=== PATIENT | female | born 1960 | race Caucasian/White ===

== ENCOUNTER → 2016-04-08 | Outpatient (CLI) | payer OTHER ==
[~2016-04-08] MED LIST: ATOR10TA88 PO; CPR500 PO; DILT180C96 PO; MESA10002 PR; MTR500 PO; MULT-506 PO; OMEG1200 PO; SPIR25TA PO
[2016-04-08 16:47] LABS: BASO % 0.2 %; BASO ABS # 0.02 K/uL (0-0.2); COMPLETE YES; EOS % 0.8 %; IG% 0.2 %; LYMPH % 22.5 %; LYMPH ABS # 1.95 K/uL (1.2-3.4); MEAN CELL VOLUME 92.8 fL (80-100); MEAN CORPUSCULAR HEMOGLOBIN 32.3 pg (25-34); MEAN CORPUSCULAR HGB CONC 34.8 g/dl (32-36); MEAN PLATELET VOLUME 10.8 fL (7.4-10.4); MONO % 8.1 %; NEUT % 68.2 %; PLATELET COUNT 303 K/uL (130-400); RED BLOOD COUNT 4.31 M/uL (4.2-5.4); WHITE BLOOD COUNT 8.65 K/uL (4.8-10.8)
[2016-04-08 17:03] LABS: ALT/SGPT 21 U/L (12-78); BLOOD UREA NITROGEN 13 mg/dl (7-18); BUN/CREATININE RATIO 15.5 (10-20); C-REACTIVE PROTEIN < 0.29 mg/dl (0-0.29); CALCIUM 10.1 mg/dl (8.5-10.1); CARBON DIOXIDE 29 mmol/L (21-32); CHLORIDE 102 mmol/L (98-107); CREATININE 0.82 mg/dl (0.60-1.20); GLUCOSE 99 mg/dl (70-99); POTASSIUM 4.3 mmol/L (3.5-5.1); SODIUM 139 mmol/L (136-145)
[2016-04-08 17:06] LABS: ALB/GLOB RATIO 1.2 (0.9-2); ALKALINE PHOSPHATASE 82 U/L (45-117); AST/SGOT 17 U/L (15-37)
== END | disposition home or self-care (01) ==
LOC: C.LAB1850 15:29
PROVIDERS: ATTEND Internal Medicine
DX: K51.90 Ulcerative colitis, unspecified, without complications (principal)

== ENCOUNTER → 2016-07-15 | Outpatient (CLI) | payer OTHER ==
[~2016-07-15] MED LIST changes: +ATOR10TA82 PO; -ATOR10TA88 PO; +DILT180C58 PO; -DILT180C96 PO
[2016-07-15 11:16] LABS: ALT/SGPT 24 U/L (12-78); BLOOD UREA NITROGEN 11 mg/dl (7-18); BUN/CREATININE RATIO 13.6 (10-20); CARBON DIOXIDE 30 mmol/L (21-32); CHLORIDE 103 mmol/L (98-107); CHOLESTEROL 170 mg/dl (0-200); CREATININE 0.81 mg/dl (0.60-1.20); GLUCOSE 101 mg/dl (70-99); POTASSIUM 4.4 mmol/L (3.5-5.1); SODIUM 138 mmol/L (136-145)
[2016-07-15 11:19] LABS: ALB/GLOB RATIO 1.2 (0.9-2); ALKALINE PHOSPHATASE 87 U/L (45-117); AST/SGOT 16 U/L (15-37); CALCIUM 10.2 mg/dl (8.5-10.1); HDL CHOLESTEROL 86 mg/dl; LDL CHOLESTEROL CALCULATED 70 mg/dl; TRIGLYCERIDES 71 mg/dl (0-150); VERY LOW DENSITY LIPOPROT CALC 14 mg/dl
== END | disposition home or self-care (01) ==
LOC: C.LABSPEC 10:55
PROVIDERS: ATTEND Family Medicine
DX: E78.2 Mixed hyperlipidemia (principal)

== ENCOUNTER → 2016-12-15 | Outpatient (CLI) | payer OTHER ==
[~2016-12-15] MED LIST changes: -ATOR10TA82 PO; +ATOR10TA88 PO; -DILT180C58 PO; +DILT180C96 PO
== END | disposition home or self-care (01) ==
LOC: C.PAPS 09:49
PROVIDERS: ATTEND Obstetrics & Gynecology
DX: Z12.4 Encounter for screening for malignant neoplasm of cervix (principal); N95.9 Unspecified menopausal and perimenopausal disorder

== ENCOUNTER → 2017-01-05 | Outpatient (CLI) | payer OTHER ==
[2017-01-05 11:39] LABS: ALB/GLOB RATIO 1.3 (0.9-2); ALT/SGPT 19 U/L (12-78); AST/SGOT 12 U/L (15-37); BLOOD UREA NITROGEN 11 mg/dl (7-18); BUN/CREATININE RATIO 11.9 (10-20); CALCIUM 10.1 mg/dl (8.5-10.1); CARBON DIOXIDE 26 mmol/L (21-32); CHLORIDE 103 mmol/L (98-107); CHOLESTEROL 172 mg/dl (0-200); GLUCOSE 96 mg/dl (70-99); POTASSIUM 4.4 mmol/L (3.5-5.1); SODIUM 138 mmol/L (136-145); TRIGLYCERIDES 69 mg/dl (0-150); VERY LOW DENSITY LIPOPROT CALC 14 mg/dl
[2017-01-05 11:40] LABS: ALKALINE PHOSPHATASE 96 U/L (45-117); HDL CHOLESTEROL 86 mg/dl; LDL CHOLESTEROL CALCULATED 72 mg/dl
== END | disposition home or self-care (01) ==
LOC: C.LABSPEC 10:59
PROVIDERS: ATTEND Family Medicine
DX: E78.2 Mixed hyperlipidemia (principal)

== ENCOUNTER → 2017-02-03 | Outpatient (CLI) | payer OTHER ==
[~2017-02-03] MED LIST changes: +ATOR10TA82 PO; -ATOR10TA88 PO; +DILT180C58 PO; -DILT180C96 PO
--- NOTE | 2017-02-04 07:44 | MAMMOGRAPHY REPORT ---
BILATERAL DIGITAL SCREENING MAMMOGRAM TOMOSYNTHESIS WITH CAD: 02/03/2017 CLINICAL HISTORY: Routine screening. Patient has no complaints. TECHNIQUE: Breast tomosynthesis in addition to standard 2D mammography was performed. Current study was also evaluated with a Computer Aided Detection (CAD) system. COMPARISON: Comparison is made to exams dated: 01/31/2016 mammogram, 11/30/2013 mammogram, 09/15/2012 mammogram, 10/08/2010 mammogram, 03/20/2009 mammogram - [facility], and 03/07/2008. BREAST COMPOSITION: There are scattered areas of fibroglandular density in both breasts. FINDINGS: The parenchymal pattern is unchanged. There are stable benign-appearing calcifications in the right breast. No developing mass, architectural distortion or cluster of suspicious microcalcif ications is seen in either breast. IMPRESSION: ACR BI-RADS CATEGORY 2: BENIGN There is no mammographic evidence of malignancy. A 1 year screening mammogram is recommended. The pa tient will receive written notification of the results. Approximately 10% of breast cancers are not detected with mammography. A negative mammographic report should not delay biopsy if a clinically suggestive mass is present. Pam Jamison M.D. ay/:02/03/2017 20:26:01 Pressure Tester Operator: Angelic GILMORE)(M), [facility] letter sent: Normal 1/2 BI-RADS Code: ACR BI-RADS Category 2: Benign
== END | disposition home or self-care (01) ==
LOC: C.MAMM 10:02
PROVIDERS: ATTEND Obstetrics & Gynecology
DX: Z12.31 Encounter for screening mammogram for malignant neoplasm of breast (principal)

== ENCOUNTER 2017-06-16 12:04 | Emergency (ER) | payer OTHER ==
[~2017-06-16] VITALS: Ht 162.6 cm; Wt 57.1 kg
[~2017-06-16 12:04] MED LIST changes: -DILT180C58 PO; +DILT180C96 PO
[2017-06-16 12:07] VITALS: Ht 162.6 cm; Wt 57.1 kg
[2017-06-16 13:34] LABS: ALBUMIN 3.2 gm/dl (3.4-5.0); CALCIUM 9.6 mg/dl (8.5-10.1); CREATININE 0.84 mg/dl (0.60-1.20); POTASSIUM 3.4 mmol/L (3.5-5.1)
[2017-06-16 13:37] LABS: BASO % 0.2 %; BASO ABS # 0.03 K/uL (0-0.2); EOS % 0.4 %; EOS ABS # 0.06 K/uL (0-0.5); HEMOGLOBIN 12.4 g/dL (12.0-16.0); IG# 0.04 K/uL (0.00-0.02); LYMPH % 9.7 %; LYMPH ABS # 1.41 K/uL (1.2-3.4); MEAN CELL VOLUME 91.1 fL (80-100); MEAN CORPUSCULAR HEMOGLOBIN 31.4 pg (25-34); MEAN CORPUSCULAR HGB CONC 34.4 g/dl (32-36); MEAN PLATELET VOLUME 9.1 fL (7.4-10.4); MONO % 7.9 %; MONO ABS # 1.15 K/uL (0.11-0.59); NEUT % 81.5 %; NEUT ABS # 11.84 K/uL (1.4-6.5); PLATELET COUNT 440 K/uL (130-400); RED CELL DISTRIBUTION WIDTH CV 12.1 % (11.5-14.5); RED CELL DISTRIBUTION WIDTH SD 40.6 fL (36.4-46.3); WHITE BLOOD COUNT 14.53 K/uL (4.8-10.8)
--- NOTE | 2017-06-16 13:38 | EMERGENCY ROOM VISIT NOTE ---
History Report prepared by Annabelle: Isaiah Short Under the Supervision of: Dr. Galindo Vernon M.D. First contact with patient: 12:33 Chief Complaint: EDEMA TO EXTREMITY Stated Complaint: SWELLING IN ANKLES,SORES ON LEGS History of Present Illness The patient is a 56 year old female who presents to the Emergency Room with complaints of worsening lower extremity sores beginning 20 days ago. She rates her discomfort as a 6/10 in severity. The patient states that she developed a light pink sore on her left knee on May 28 and another on her right calf a week later. The patient states that the area has been painful and swollen. She reports that her ankles haven also been edematous bilaterally. The patient states that her symptoms have been accompanied by joint aches, neck pain, and myalgia. She reports that she went to see her PCP, Dr. Russo, last week who was unsure what was causing her symptoms. The patient states that she was sent home with a prescription of Augmentin. She reports that she has been taking her antibiotics for five days, but denies any relief of symptoms. The patient states that her symptoms have been worsening instead and her sores have turned from a light pink to a red color. She denies fevers, chills, nausea, lightheaded , dizziness, urinary symptoms, diarrhea. Source of History: patient Onset: May 28 Position: leg (right), knee (left) Symptom Intensity: 6/10 Quality: other (red, swollen, painful) Timing: worsening Modifying Factors (Relieving): other (antibiotics) Associated Symptoms: + neck pain, No fevers, No chills, No nausea, No diarrhea, No urinary symptoms Note: Associated symptoms: lower extremity edema, myalgia, joint aches, Review of Systems See HPI for pertinent positives & negatives. A total of 10 systems reviewed and were otherwise negative. Past Medical & Surgical Surgical Problems: (1) H/O arthroscopic knee surgery Family History Patient reports no known family medical history. Social History Smoking Status: Never Smoker Alcohol Use: none Drug Use: none Marital Status: Housing Status: lives with family Occupation Status: employed Current/Historical Medications Scheduled Atorvastatin (Lipitor), 10 MG PO DAILY Ciprofloxacin (Ciprofloxacin HCl), 500 MG PO BID Diltiazem Hcl Coated Beads (Diltiazem Cd), 180 MG PO HS Doxycycline Hyclate (Vibramycin), 100 MG PO BID Mesalamine (Apriso), 4 CAP PO DAILY [place]-3 Fatty Acids (Fish Oil), 1 CAP PO DAILY Spironolactone (Aldactone), 25 MG PO BID Allergies Coded Allergies: No Known Allergies (Unverified , 06/16/17) Physical Exam Vital Signs Date Time Temp Pulse Resp B/P (MAP) Pulse Ox O2 Delivery O2 Flow Rate FiO2 06/16/17 18:15 37.1 77 18 136/72 96 06/16/17 16:30 80 16 134/70 98 Room Air 06/16/17 14:34 81 18 133/69 98 Room Air 06/16/17 12:07 36.8 97 18 154/75 97 Room Air Physical Exam GENERAL: Patient is in no acute distress. HEENT: No acute trauma, normocephalic atraumatic, mucous membranes moist, no nasal congestion, no scleral icterus. NECK: No stridor, no adenopathy, no meningismus, trachea is midline. LUNGS: Clear to auscultation bilaterally, no wheeze, no rhonchi, breath sounds equal. HEART: Without murmurs gallops or rubs, regular rate and rhythm. ABDOMEN: Soft, nontender, bowel sounds positive, no hernias, no peritonitis. EXTREMITIES: No cyanosis, mild bilateral pedal edema, full range of motion of all the joints without pain or difficulty, no signs for acute trauma. NEUROLOGIC: Oriented x 3, no acute motor or sensory deficits, no focal weakness. SKIN: No jaundice. There is a 4 cm erythematous, slightly raised lesion along the medial left knee. Area is tender. No drainage. There is a 6-7 cm similar appearing lesion to the right lateral leg. It is erythematous, slightly warm, slightly raised, and tender to touch. It has a pale central area. No drainage. Medical Decision & Procedures ER Provider Diagnostic Interpretation: Radiology results as stated below per my review and radiologist interpretation: ULTRASOUND BILATERAL LOWER EXTREMITY VENOUS CLINICAL HISTORY: Lower extremity edema. COMPARISON STUDY: No priors. TECHNIQUE: Real-time, grayscale, and color Doppler sonography of the deep veins of the right and left lower extremity was performed from the inguinal crease to the calf. Compression and augmentation were utilized. FINDINGS: There is no sonographic evidence of deep venous thrombosis identified in the right or left lower extremity. The common femoral, superficial femoral, and popliteal veins are patent and normally compressible bilaterally. The greater saphenous vein and the profunda femoris vein at the junction with the common femoral vein are clear in both legs. The visualized calf veins are patent bilaterally. IMPRESSION: There is no sonographic evidence of deep venous thrombosis identified in the right or left lower extremity. Electronically signed by: Galindo Smith M.D. 06/16/2017 2:43 PM Dictated Date/Time: 06/16/2017 2:43 PM EXTREMITY NONVASCULAR COMPLETE CLINICAL HISTORY: 56 years-old Female presenting with lesion on right leg--poss abscess. TECHNIQUE: Real-time grayscale Doppler ultrasound imaging of the anteromedial left knee was performed for a focused evaluation at the site of clinical concern. Color Doppler ultrasound imaging was also performed. COMPARISON: None. FINDINGS: Extensive subcutaneous edema and skin thickening along the anteromedial left knee at the site of clinical concern. No focal fluid collection. No significant hyperemia on color Doppler. IMPRESSION: 1. Nonspecific subcutaneous edema. This could indicate cellulitis in the proper clinical setting. No evidence of abscess. Electronically signed by: Kenny Swift M.D. 06/16/2017 2:47 PM Dictated Date/Time: 06/16/2017 2:44 PM CHEST ONE VIEW PORTABLE CLINICAL HISTORY: possible hilar adenopathy adenopathy COMPARISON STUDY: 01/18/2014 FINDINGS: The bones soft tissues and hemidiaphragms are normal. The cardiomediastinal silhouette is normal. The lungs are clear. The pulmonary vasculature is normal. IMPRESSION: Negative chest. The above report was generated using voice recognition software. It may contain grammatical, syntax or spelling errors. Electronically signed by: Tom Mckenzie M.D. 06/16/2017 4:14 PM Dictated Date/Time: 06/16/2017 4:14 PM Laboratory Results 06/16/17 13:00 Red Blood Count 3.95, Mean Corpuscular Volume 91.1, Mean Corpuscular Hemoglobin 31.4, Mean Corpuscular Hemoglobin Concent 34.4, Mean Platelet Volume 9.1, Neutrophils (%) (Auto) 81.5, Lymphocytes (%) (Auto) 9.7, Monocytes (%) (Auto) 7.9, Eosinophils (%) (Auto) 0.4, Basophils (%) (Auto) 0.2, Neutrophils # (Auto) 11.84, Lymphocytes # (Auto) 1.41, Monocytes # (Auto) 1.15, Eosinophils # (Auto) 0.06, Basophils # (Auto) 0.03 06/16/17 13:00 Test 06/16/17 13:00 White Blood Count 14.53 K/uL (4.8-10.8) Red Blood Count 3.95 M/uL (4.2-5.4) Hemoglobin 12.4 g/dL (12.0-16.0) Hematocrit 36.0 % (37-47) Mean Corpuscular Volume 91.1 fL (80-100) Mean Corpuscular Hemoglobin 31.4 pg (25-34) Mean Corpuscular Hemoglobin Concent 34.4 g/dl (32-36) Platelet Count 440 K/uL (130-400) Mean Platelet Volume 9.1 fL (7.4-10.4) Neutrophils (%) (Auto) 81.5 % Lymphocytes (%) (Auto) 9.7 % Monocytes (%) (Auto) 7.9 % Eosinophils (%) (Auto) 0.4 % Basophils (%) (Auto) 0.2 % Neutrophils # (Auto) 11.84 K/uL (1.4-6.5) Lymphocytes # (Auto) 1.41 K/uL (1.2-3.4) Monocytes # (Auto) 1.15 K/uL (0.11-0.59) Eosinophils # (Auto) 0.06 K/uL (0-0.5) Basophils # (Auto) 0.03 K/uL (0-0.2) RDW Standard Deviation 40.6 fL (36.4-46.3) RDW Coefficient of Variation 12.1 % (11.5-14.5) Immature Granulocyte % (Auto) 0.3 % Immature Granulocyte # (Auto) 0.04 K/uL (0.00-0.02) Erythrocyte Sedimentation Rate 88 mm/hr (0-21) Urine Color YELLOW Urine Appearance CLEAR (CLEAR) Urine pH 6.5 (4.5-7.5) Urine Specific [place] 1.006 (1.000-1.030) Urine Protein NEG (NEG) Urine Glucose (UA) NEG (NEG) Urine Ketones NEG (NEG) Urine Occult Blood NEG (NEG) Urine Nitrite NEG (NEG) Urine Bilirubin NEG (NEG) Urine Urobilinogen NEG (NEG) Urine Leukocyte Esterase NEG (NEG) Anion Gap 8.0 mmol/L (3-11) Est Creatinine Clear Calc Drug Dose 63.1 ml/min Estimated GFR () 88.8 Estimated GFR (Non- 76.6 BUN/Creatinine Ratio 14.7 (10-20) Calcium Level 9.6 mg/dl (8.5-10.1) Total Bilirubin 0.5 mg/dl (0.2-1) Aspartate Amino Transf (AST/SGOT) 11 U/L (15-37) Alanine Aminotransferase (ALT/SGPT) 13 U/L (12-78) Alkaline Phosphatase 86 U/L (45-117) C-Reactive Protein 3.88 mg/dl (0-0.29) Total Protein 8.3 gm/dl (6.4-8.2) Albumin 3.2 gm/dl (3.4-5.0) Globulin 5.1 gm/dl (2.5-4.0) Albumin/Globulin Ratio 0.6 (0.9-2) Thyroid Stimulating Hormone (TSH) 1.880 uIu/ml (0.300-4.500) Lyme Disease IgG Antibody NEG (NEG) Lyme Disease IgM Antibody NEG (NEG) Laboratory results reviewed by me. Medications Administered Medications (Trade) Dose Ordered Sig/Jamal Route Start Time Stop Time Status Last Admin Dose Admin Vancomycin HCl (Vancomycin 1gm Ed/Asu Omnicell) 1 gm NOW STAT IV 06/16/17 15:23 06/16/17 15:26 DC 06/16/17 15:52 1 GM Doxycycline Hyclate (Vibramycin Cap) 100 mg NOW STAT PO 06/16/17 15:23 06/16/17 15:26 DC 06/16/17 16:30 100 MG ED Course 1234: The patient was evaluated in room C08. A complete history and physical exam was performed. 1504: I discussed the patients case with Dr. Mckee, [facility] Infectious Disease. She suggests switching antibiotics to cover MRSA. 1515: I reevaluated the patient and she is resting comfortably. She is getting her antibiotics. She reports she does not want to stay. 1523: Ordered doxycycline Cap 100 mg PO, Vancomycin HCl 1 gm IV. 1613: I discussed the patients case with Medina Sanderson [facility] GI. She reports she will see the patient in her office on Thursday. 1635: Reevaluated the patient. Discussed results and discharge instructions: She verbalized understanding and agreement. The patient is ready for discharge. Medical Decision The patient is a 56 year old female who presents to the Emergency Room with complaints of worsening lower extremity sores beginning 20 days ago. Differential diagnoses considered include erythema nodosa, Lyme disease, tick borne illness, autoimmune disease, thyroid disorder, bacteremia, abscess, arthritis, viral illness, and DVT. Patient does have a leukocytosis at 14,000, this could be consistent with infection. No concerning anemia. Renal panel testing does not show evidence for kidney failure. Her sodium was somewhat low at 125, I discussed this with the patient, she will increase her salt intake. There is no hepatitis. Patient appeared to be in a euthyroid state. Sed rate was elevated at 88, CRP was elevated at over 3. Blood cultures are pending. Right leg ultrasound did not show evidence for abscess, a cellulitis was suspected. Bilateral lower extremity ultrasound did not show evidence for DVT. Urinalysis did not show evidence for infection. Lyme disease testing was negative. Chest film did not show hilar adenopathy, pneumonia or CHF. The patient was given oral doxycycline and oral vancomycin. I did discuss the case with ID, they suggested switching to doxycycline as this may be an MRSA infection. I discussed the case with GI, they will see the patient in the outpatient office in a few days. At this point, the cause for her presentation is unclear, infection is a concern and that is the reason for the change in antibiotics. Erythema nodosum lesions could also present like this, the patient does have a history of ulcerative colitis-GI follow-up is being scheduled. The patient was encouraged to return for fever or worsening symptoms. She did not want to stay in the hospital, she did prefer discharge. She did seem stable for discharge. Medication Reconcilliation Current Medication List: was personally reviewed by me Blood Pressure Screening Patient's blood pressure: Elevated blood pressure Blood pressure disposition: Elevated BP felt to be situational Consults Time Called: 1500 Consulting Physician: Dr. Mckee, [facility] Infectious Disease Returned Call: 1504 I discussed the patients case with Dr. Mckee, [facility] Infectious Disease. She suggests switching antibiotics to cover MRSA. Additional Consults: Time Called: 1613 Consulted Physician: Dr. Sanderson, [facility] GI Returned Call: 1613 Additional Comments: I discussed the patients case with Medina Kin [facility] GI. She reports she will see the patient in her office on Thursday. Impression Primary Impression: Leg swelling Additional Impressions: Erythema nodosum Failure of outpatient treatment Scribe Attestation The scribe's documentation has been prepared under my direction and personally reviewed by me in its entirety. I confirm that the note above accurately reflects all work, treatment, procedures, and medical decision making performed by me. Departure Information Dispostion Home / Self-Care Prescriptions Doxycycline Hyclate (VIBRAMYCIN) 100 Mg Cap 100 MG PO BID for 14 Days, #28 CAP Prov: Galindo Vernon M.D. 06/16/17 Referrals No Doctor, Assigned (PCP) Ottoniel Russo, DO Forms HOME CARE DOCUMENTATION FORM, IMPORTANT VISIT INFORMATION, WORK / SCHOOL INSTRUCTIONS Patient Instructions My [facility] Additional Instructions stop the augmentin start doxycycline 2x per day for 2 weeks return for fever, worsening symptoms, vomiting follow with infectious disease this week as scheduled see GI (Dr. Jimenez) 910 am Thursday Problem Qualifiers
[2017-06-16 13:44] LABS: TOTAL PROTEIN 8.3 gm/dl (6.4-8.2)
[2017-06-16] MEDS ORDERED: MESA0.37 PO (14:03)
--- NOTE | 2017-06-16 14:44 | DIAGNOSTIC IMAGING REPORT ---
ULTRASOUND BILATERAL LOWER EXTREMITY VENOUS CLINICAL HISTORY: Lower extremity edema. COMPARISON STUDY: No priors. TECHNIQUE: Real-time, grayscale, and color Doppler sonography of the deep veins of the right and left lower extremity was performed from the inguinal crease to the calf. Compression and augmentation were utilized. FINDINGS: There is no sonographic evidence of deep venous thrombosis identified in the right or left lower extremity. The common femoral, superficial femoral, and popliteal veins are patent and normally compressible bilaterally. The greater saphenous vein and the profunda femoris vein at the junction with the common femoral vein are clear in both legs. The visualized calf veins are patent bilaterally. IMPRESSION: There is no sonographic evidence of deep venous thrombosis identified in the right or left lower extremity. Electronically signed by: Galindo Smith M.D. 06/16/2017 2:43 PM Dictated Date/Time: 06/16/2017 2:43 PM
--- NOTE | 2017-06-16 14:48 | DIAGNOSTIC IMAGING REPORT ---
EXTREMITY NONVASCULAR COMPLETE CLINICAL HISTORY: 56 years-old Female presenting with lesion on right leg--poss abscess. TECHNIQUE: Real-time grayscale Doppler ultrasound imaging of the anteromedial left knee was performed for a focused evaluation at the site of clinical concern. Color Doppler ultrasound imaging was also performed. COMPARISON: None. FINDINGS: Extensive subcutaneous edema and skin thickening along the anteromedial left knee at the site of clinical concern. No focal fluid collection. No significant hyperemia on color Doppler. IMPRESSION: 1. Nonspecific subcutaneous edema. This could indicate cellulitis in the proper clinical setting. No evidence of abscess. Electronically signed by: Kenny Swift M.D. 06/16/2017 2:47 PM Dictated Date/Time: 06/16/2017 2:44 PM
[2017-06-16] MEDS ORDERED: DOXYCYCLINE HYCLATE 100 MG CAP PO STA (15:23)
[2017-06-16] MEDS ORDERED: VANCOMYCIN 1GM ED/ASU OMNICELL IV STA (15:23)
[2017-06-16] MEDS ORDERED: DOXY100C PO (15:55)
--- NOTE | 2017-06-16 16:16 | DIAGNOSTIC IMAGING REPORT ---
CHEST ONE VIEW PORTABLE CLINICAL HISTORY: possible hilar adenopathy adenopathy COMPARISON STUDY: 01/18/2014 FINDINGS: The bones soft tissues and hemidiaphragms are normal. The cardiomediastinal silhouette is normal. The lungs are clear. The pulmonary vasculature is normal. IMPRESSION: Negative chest. The above report was generated using voice recognition software. It may contain grammatical, syntax or spelling errors. Electronically signed by: Tom Mckenzie M.D. 06/16/2017 4:14 PM Dictated Date/Time: 06/16/2017 4:14 PM
[2017-06-16 18:15] VITALS: BP 136/72; PULSE 77; TEMP 37.1; O2SAT 96
== END 2017-06-16 18:17 | disposition home or self-care (01) ==
LOC: C.EDB 12:05 → C.EDC 18:17
DX: R60.0 Localized edema (principal); L52 Erythema nodosum